=== PATIENT | female | born 1995 | race Caucasian/White ===

== ENCOUNTER 2017-03-20 19:56 | Emergency (ER) | payer OTHER ==
[2017-03-20 20:15] VITALS: TEMP 98.2; O2SAT 95
--- NOTE | 2017-03-20 20:58 | ED.PDOC ---
History of Present Illness - General Chief Complaint: GI Problem Stated Complaint: Abdominal cramping and nausea Time Seen by Provider: 03/20/17 20:05 Source: patient Exam Limitations: no limitations - History of Present Illness Initial Comments: the patient is a 21-year-old female presenting to the emergency room at approximately 10 weeks gestational age presenting withbilateral lower abdomen discomfort and some low back discomfort for the last 24 hours. She does have significant nausea and vomiting of and has had a difficult time keeping hydrated. She has not yet seen an military administrative technician and has not yet received any treatment for it. She is taking vitamins. No vaginal bleeding or significant discharge. No fever. No rebound or peritoneal signs. She has been having something of a difficult time keeping hydrated. Timing/Duration: unsure Severity: moderate Improving Factors: nothing Worsening Factors: nothing Associated Symptoms: malaise, nausea/vomiting Allergies/Adverse Reactions: Allergies NO KNOWN ALLERGY Allergy (Verified 10/01/15 21:37) Home Medications: Ambulatory Orders Doxylamine-Pyridoxine [Diclegis 10-10 mg] 2 tab PO DAILY #30 tab 03/20/17 Famotidine 20 mg PO DAILY #30 tab 03/20/17 Vit W/ Ferrous Fumara [] 1 tab PO DAILY 03/20/17 Promethazine HCl 25 mg PO Q6H PRN #10 tab 03/20/17 Review of Systems - Review of Systems Constitutional: States: malaise EENTM: States: no symptoms reported Respiratory: States: no symptoms reported Cardiology: States: no symptoms reported Gastrointestinal/Abdominal: States: nausea, vomiting Genitourinary: States: no symptoms reported Musculoskeletal: States: back pain Skin: States: no symptoms reported Neurological: States: anxiety Endocrine: States: no symptoms reported All other Systems: No Change from Baseline Past Medical History (General) - Patient Medical History Hx Seizures: No Hx Stroke: No Hx Dementia: No Hx Asthma: No Hx of COPD: No Hx Cardiac Disorders: No Hx Congestive Heart Failure: No Hx Pacemaker: No Hx Hypertension: No Hx Thyroid Disease: No Hx Diabetes: No Hx Gastroesophageal Reflux: No Hx Renal Disease: No Hx Cancer: No Hx of HIV: No Hx Hepatitis C: No Hx MRSA: No Surgical History: tonsillectomy - Vaccination History Hx Tetanus, Diphtheria Vaccination: No Hx Influenza Vaccination: No Hx Pneumococcal Vaccination: No Immunizations Up to Date: Yes - Social History Hx Tobacco Use: Yes Hx Alcohol Use: No Hx Substance Use: No - Female History Hx Last Menstrual Period: 02/08/13 Patient : No Expected Date of Delivery:: 11/15/13 Family Medical History - Family History Mother Family History: Unknown Physical Exam - Physical Exam General Appearance: Alert, Comfortable, No apparent distress Eye Exam: bilateral normal Ears, Nose, Throat: hearing grossly normal, normal ENT inspection, normal pharynx Neck: non-tender, full range of motion, supple Respiratory: chest non-tender, lungs clear, normal breath sounds, no respiratory distress, no accessory muscle use Cardiovascular/Chest: normal peripheral pulses, regular rate, rhythm, no edema Peripheral Pulses: radial,right: 2+, radial,left: 2+, dorsalis pedis,right: 2+, dorsalis pedis,left: 2+ Gastrointestinal/Abdominal: soft, other - no fundal tenderness to palpation. No rebound or peritoneal signs. Mild discomfort to palpation in both the right lower and left lower quadrantsas well as over the round ligaments Rectal Exam: deferred Back Exam: normal inspection, no CVA tenderness, no vertebral tenderness - low back discomfort is primarily L4-L5 extending across the back. Extremity: normal range of motion, non-tender, normal inspection, no pedal edema , normal capillary refill Neurologic: counterintelligence specialist II-XII nml as tested, no motor/sensory deficits, alert, normal mood/affect - she is anxious, oriented x 3 Skin Exam: normal color Comments: Vital Signs - 8 hr 03/20/17 03/20/17 20:09 20:11 Temperature 98.2 F Pulse Rate [ 88 88 Right Radial] Respiratory 18 18 Rate Blood Pressure 110/65 [Left Arm] O2 Sat by Pulse 95 Oximetry Progress - Progress Progress: 03/20/17 21:00 the patient is a 21-year-old female presenting at 10 weeks gestational age secondary to lower abdominal pain. The patient does have significant nausea and vomiting of and is going to be started on doxylamine pyridoxine to help control it. Additionally she'll be placed on 2 weeks of Pepcid. Additionally she'll be written for Phenergan for as needed use to control the vomiting to keep hydrated. No doubt some mild dehydration is contributing to the bodyaches. She does need to follow up with her primary care doctor or military administrative technician next week. ER warnings were given. low resolution Ultrasound here today appears reassuring. - Results/Orders Results/Orders: Laboratory Tests 03/20/17 20:30 Urine Color Yellow Urine Appearance Cloudy Urine pH 7.5 Ur Specific [place] 1.020 Urine Protein Negative Urine Glucose (UA) Negative Urine Ketones Negative Urine Blood Negative Urine Nitrite Negative Urine Bilirubin Negative Urine Urobilinogen 1.0 Ur Leukocyte Esterase Negative Urine RBC 0-1 Urine WBC 1-3 Ur Epithelial Cells 5-10 Amorphous Sediment 3+ Urine Bacteria Rare Urine Mucus Trace ultrasound here shows an intrauterine grossly consistent with a 10 week gestational age. There is movement. There is cardiac motion. There does appear to be adequate fluid. I do not see any placental separation at this point. Departure - Departure Clinical Impression: Dehydration during , Nausea and vomiting during Disposition: Discharge to Home or Self Care Condition: Fair Departure Forms: ED Discharge - Pt. Copy, Patient Portal Self Enrollment Diet: bland diet Activity: increase activity as tolerated Referrals: Ashkan Herrera MD [Primary Care Provider] - 1-5 Days Prescriptions: Doxylamine-Pyridoxine [Diclegis 10-10 mg] 2 tab PO DAILY #30 tab Famotidine 20 mg PO DAILY #30 tab Promethazine HCl 25 mg PO Q6H PRN #10 tab PRN Reason: Vomiting Home Medications: Ambulatory Orders Doxylamine-Pyridoxine [Diclegis 10-10 mg] 2 tab PO DAILY #30 tab 03/20/17 Famotidine 20 mg PO DAILY #30 tab 03/20/17 Vit W/ Ferrous Fumara [] 1 tab PO DAILY 03/20/17 Promethazine HCl 25 mg PO Q6H PRN #10 tab 03/20/17 Additional Instructions: the patient is a 21-year-old female presenting at 10 weeks gestational age secondary to lower abdominal pain. The patient does have significant nausea and vomiting of and is going to be started on doxylamine pyridoxine to help control it. Additionally she'll be placed on 2 weeks of Pepcid. Additionally she'll be written for Phenergan for as needed use to control the vomiting to keep hydrated. No doubt some mild dehydration is contributing to the bodyaches. She does need to follow up with her primary care doctor or military administrative technician next week. ER warnings were given. low resolution Ultrasound here today appears reassuring.
[2017-03-20 21:13] VITALS: BP 109/70
== END 2017-03-20 21:13 | disposition home or self-care (01) ==
LOC: ER 19:56
DX: O21.1 Hyperemesis gravidarum with metabolic disturbance (principal); Z3A.10 10 weeks gestation of pregnancy

== ENCOUNTER 2019-04-02 01:41 | Emergency (ER) | payer OTHER, SELFPAY ==
[2019-04-02] MEDS ORDERED: KETOROLAC TROMETHAMINE INJ 30 MG/ML VIAL IM ONE (01:58)
--- NOTE | 2019-04-02 02:02 | ED.PDOC ---
History of Present Illness - General Chief Complaint: Upper Extremity Injury Stated Complaint: left wrist pain Time Seen by Provider: 04/02/19 01:57 Source: patient Exam Limitations: no limitations - History of Present Illness Initial Comments: Patient presents complaining of left wrist pain after FOSH. She was stepping off her porch when she fell. Pain is lateral with radiation to the volar surface of the distal third of the left forearm. Throbbing and constant. Worse with movement, better with rest. No previous injuries to the area. No other symptoms nor injuries. Timing/Duration: 1/2 hour Severity: moderate Improving Factors: rest Worsening Factors: movement Associated Symptoms: denies symptoms Allergies/Adverse Reactions: Allergies NO KNOWN ALLERGY Allergy (Verified 10/01/15 21:37) Home Medications: Ambulatory Orders Doxylamine-Pyridoxine [Diclegis 10-10 mg] 2 tab PO DAILY #30 tab 03/20/17 Famotidine 20 mg PO DAILY #30 tab 03/20/17 Vit W/ Ferrous Fumara [] 1 tab PO DAILY 03/20/17 Promethazine HCl 25 mg PO Q6H PRN #10 tab 03/20/17 Acetaminophen W/ Codeine [Tylenol W/ CODEINE #3] 1 ea PO Q6HRS PRN #20 04/02/19 Review of Systems - Review of Systems Constitutional: States: no symptoms reported EENTM: States: no symptoms reported Respiratory: States: no symptoms reported Cardiology: States: no symptoms reported Gastrointestinal/Abdominal: States: no symptoms reported Genitourinary: States: no symptoms reported Musculoskeletal: States: see HPI Skin: States: no symptoms reported Neurological: States: no symptoms reported Endocrine: States: no symptoms reported Hematologic/Lymphatic: States: no symptoms reported Past Medical History (General) - Patient Medical History Hx Seizures: No Hx Stroke: No Hx Dementia: No Hx Asthma: No Hx of COPD: No Hx Cardiac Disorders: No Hx Congestive Heart Failure: No Hx Pacemaker: No Hx Hypertension: No Hx Thyroid Disease: No Hx Diabetes: No Hx Gastroesophageal Reflux: No Hx Renal Disease: No Hx Cancer: No Hx of HIV: No Hx Hepatitis C: No Hx MRSA: No - Vaccination History Hx Tetanus, Diphtheria Vaccination: No Hx Influenza Vaccination: No Hx Pneumococcal Vaccination: No - Social History Hx Tobacco Use: Yes Hx Alcohol Use: No Hx Substance Use: No - Female History Hx Last Menstrual Period: 02/08/13 Patient : No Expected Date of Delivery:: 11/15/13 Family Medical History - Family History Mother Family History: Unknown Physical Exam - Physical Exam General Appearance: Alert Respiratory: lungs clear, normal breath sounds Cardiovascular/Chest: normal peripheral pulses, regular rate, rhythm Gastrointestinal/Abdominal: normal bowel sounds, non tender, soft Extremity: normal capillary refill, other - TTP over lateral left wrist. Mild edema. Patient does not want to try to move the wrist due to pain. 5/5 AROM of the left fingers. supination and pronation examination deferred until radiographs obtained. Neurologic: no motor/sensory deficits, alert, normal mood/affect Skin Exam: normal color Lymphatic: no adenopathy Progress - Progress Progress: 04/02/19 03:03 Radiographs showed non-displaced fracture of the left ulnar styloid process. There was an mildly displaced posteriorly angulated fracture of the distal left radius. The fracture site was injected with 8 cc of lidocaine without epinphephrine and longitudinal traction used to partially reduce the fracture. 90 degree long arm gutter splint applied. Patient had full sensation in her left hand and fingers as well as 5/5 AROM of the left fingers. Capillary refill less than 2 seconds in the left fingernail beds. Care instructions given. E.R. warnings given. Questions were elicited and answered. Patient voiced understanding and agreement with the plan. Departure - Departure Clinical Impression: Wrist fracture, left Disposition: Discharge to Home or Self Care Condition: Good Departure Forms: ED Discharge - Pt. Copy, Patient Portal Self Enrollment Instructions: Wrist Fracture (DC) Diet: other - No lifting with the left arm. Referrals: Ashkan Herrera MD [Primary Care Provider] - 1-2 Weeks Prescriptions: Acetaminophen W/ Codeine [Tylenol W/ CODEINE #3] 1 ea PO Q6HRS PRN #20 PRN Reason: Pain Home Medications: Ambulatory Orders Doxylamine-Pyridoxine [Diclegis 10-10 mg] 2 tab PO DAILY #30 tab 03/20/17 Famotidine 20 mg PO DAILY #30 tab 03/20/17 Vit W/ Ferrous Fumara [] 1 tab PO DAILY 03/20/17 Promethazine HCl 25 mg PO Q6H PRN #10 tab 03/20/17 Acetaminophen W/ Codeine [Tylenol W/ CODEINE #3] 1 ea PO Q6HRS PRN #20 04/02/19 Additional Instructions: Take pain medication as prescribed if needed. Do not drive within 8 hours after taking the pain medications. Do not drink alcohol or operate heavy machinery after taking the pain medication. You can use ibuprofen as a safe substitute for Tylenol #3. Use the arm sling except when bathing. Cover the splint with a plastic bag when bathing. See Dr. Groves in 3-4 days for casting. Return to the E.R. immediately for loss of sensation in the left hand, pale left hand, or hardening texture of the skin of the left hand. Return for increasing pain in the left hand.
[2019-04-02] MEDS ORDERED: LIDOCAINE 1% 10 ML VIAL INJ ONE (02:32)
--- NOTE | 2019-04-02 02:53 | RAD ---
EXAM DESCRIPTION: Forearm,Left CLINICAL HISTORY: fell down step, landed on left arm COMPARISON: None. FINDINGS/IMPRESSION: 2 views of the left forearm. Acute mildly displaced fracture of the distal left radial metaphysis with approximately 30 degrees dorsal angulation of the distal radial articular surface. Mildly displaced ulnar styloid fracture. Normal osseous mineralization. Electronically signed by: Harmeet Allred 04/02/2019 2:51 AM CDT
--- NOTE | 2019-04-02 02:53 | RAD ---
EXAM DESCRIPTION: Elbow,Left 3 Views CLINICAL HISTORY: fell down step, landed on left arm COMPARISON: None. FINDINGS: 3 views of the left elbow. No acute fracture or dislocation. Normal osseous mineralization. No joint effusion. IMPRESSION: 1. No acute fracture or dislocation. Electronically signed by: Harmeet Allred 04/02/2019 2:52 AM CDT
--- NOTE | 2019-04-02 02:55 | RAD ---
EXAM DESCRIPTION: Hand,Left 3 Views CLINICAL HISTORY: fell down step, landed on left arm COMPARISON: None. FINDINGS/IMPRESSION: 3 views of the left hand. Acute mildly displaced fracture of the distal left radial metaphysis with approximately 30 degrees dorsal angulation the distal radial articular surface. Minimally displaced ulnar styloid fracture. No fractures involving the carpals, metacarpals, or phalanges. Normal osseous mineralization. Electronically signed by: Harmeet Allred 04/02/2019 2:53 AM CDT
--- NOTE | 2019-04-02 02:56 | RAD ---
EXAM DESCRIPTION: Wrist,Left 3 Views CLINICAL HISTORY: fell down step, landed on left arm COMPARISON: None. FINDINGS/IMPRESSION: 3 views of the left wrist. Acute mildly displaced fracture of the distal left radial metaphysis with approximately 30 degrees dorsal angulation of the distal radial articular surface. Minimally displaced ulnar styloid fracture. Normal osseous mineralization. Electronically signed by: Harmeet Allred 04/02/2019 2:54 AM CDT
[2019-04-02] MEDS ORDERED: ACETAMINOPHEN W/COD #3 TAB (ER Disp) PO ONE (03:08)
[2019-04-02 03:22] VITALS: BP 120/71; TEMP 99; O2SAT 97
== END 2019-04-02 03:21 | disposition home or self-care (01) ==
LOC: ER 01:41
DX: S52.615A Nondisplaced fracture of left ulna styloid process, initial encounter for closed fracture (principal); S52.502A Unspecified fracture of the lower end of left radius, initial encounter for closed fracture; Z87.891 Personal history of nicotine dependence; W18.30XA Fall on same level, unspecified, initial encounter; Y92.009 Unspecified place in unspecified non-institutional (private) residence as the place of occurrence of the external cause
CPT/HCPCS: 73080; 73090; 73110; 73130; 81025; J1885

== ENCOUNTER 2019-04-04 05:25 | Day surgery (SDC) | payer SELFPAY ==
[2019-04-04] MEDS ORDERED: SODIUM CHL 0.9% 100ML MINI-BAG 100 ML IVPB ONE (08:35)
[2019-04-04] MEDS: LACTATED RINGERS 1,000 ML ONE (09:05)
[2019-04-04] MEDS ORDERED: DEXAMETHASONE INJ 10 MG/ML VIAL IV ONE (10:00)
[2019-04-04] MEDS ORDERED: raNITIdine HCL INJ 25 MG/ML VIAL IV ONE (10:00)
[2019-04-04] MEDS ORDERED: PROPOFOL 200 MG/20 ML VIAL IV ONE (10:00)
[2019-04-04] MEDS ORDERED: LIDOCAINE 1% 10 ML VIAL INJ ONE (10:00)
[2019-04-04] MEDS ORDERED: KETOROLAC TROMETHAMINE INJ 30 MG/ML VIAL IV ONE (10:00)
[2019-04-04] MEDS ORDERED: fentaNYL CITRATE INJ 50 MCG/ML AMP ONE (10:10)
[2019-04-04] MEDS ORDERED: KETAMINE HCL 50 MG/ML SYG IV ONE (10:10)
[2019-04-04] MEDS ORDERED: MIDAZOLAM INJ 2 MG/2 ML VIAL ONE (10:10)
[2019-04-04] MEDS: ceFAZolin SODIUM 1 GM VIAL ONE ×2 (10:21→11:00)
[2019-04-04] MEDS: VANCOMYCIN HCL INJ 1,000 MG VIAL IVPB ONE (11:00)
[2019-04-04] MEDS: BUPIVACAINE 0.5% 30 ML VIAL INJ ONE (11:12)
[2019-04-04] MEDS: BUPIVACAINE LIPOSOME 13.3 MG/ML VIAL INJ ONE (11:12)
[2019-04-04] MEDS: MEPERIDINE HCL 50 MG/ML VIAL ONE (11:40)
[2019-04-04] MEDS: ONDANSETRON INJ 4 MG/2 ML VIAL ONE (11:40)
[2019-04-04] MEDS: HYDROmorphone HCL INJ 2 MG/ML VIAL ONE (11:51)
[2019-04-04] MEDS: HYDROcodone 5MG/APAP 325MG 1 EA TAB ONE (12:31)
--- NOTE | 2019-04-04 12:39 | RAD ---
2 radiographs left wrist Indication: post op perc pinning Comparison: April 02, 2019 Impression: Placement of 2 surgical wires across the distal radial fracture noted with improved fracture alignment. Ulnar styloid fracture noted as well. No new fractures identified. Electronically signed by: Rayray Dale MD 04/04/2019 12:37 PM CDT
[2019-04-04 13:09] VITALS: BP 127/87; TEMP 97.3; O2SAT 97
--- NOTE | 2019-04-04 13:50 | RAD ---
EXAM DESCRIPTION: Fluoroscopy Up to 1Hr CLINICAL HISTORY: 23 years Female, PERC-PINNING COMPARISON: Left Wrist radiographs same day FINDINGS/IMPRESSION: Frontal and lateral intraoperative fluoroscopic views were obtained demonstrating interval percutaneous pinning of the left distal radius fracture. Redemonstration of ulnar styloid base fracture. Fluoroscopy less than one hour. Electronically signed by: Rosendo Covington DO 04/04/2019 1:48 PM CDT
--- NOTE | 2019-04-05 10:00 | OP ---
DATE OF PROCEDURE: 04/04/19 PREOPERATIVE DIAGNOSIS: 1. Left distal radius fracture. POSTOPERATIVE DIAGNOSIS: 1. Left distal radius fracture. PROCEDURE: 1. Closed reduction and percutaneous pinning. SURGEON: True Groves MD. HEALTH AND WELLNESS COORDINATOR: Clifford Coffey CST, SA-C. ANESTHESIA: General anesthesia. COMPLICATIONS: None. FINDINGS: Displaced distal radius fracture. INDICATION FOR PROCEDURE: Ms. Rodriguez has a history of a fall that occurred one day prior to presentation. She was placed in a splint and following placement in the splint, I saw her in the clinic. I discussed with her options and given the displacement of the fracture, I felt at minimum a reduction was needed. After discussing the risks, benefits and alternatives to operative therapy, she gave informed consent for closed reduction and percutaneous pinning. PROCEDURE: The patient was brought to the Operating Room and placed in supine position. General anesthesia was induced and the patient's arm was sterilely prepped and draped. Under fluoroscopic imaging, a reduction of the fracture was achieved. A very small stab incision was made along the radial styloid. Blunt dissection was carried down to the radial styloid and a 1.6 mm K-wire was placed across the fracture site obliquely. A second wire was placed as well. Following placement of the wires, the wrist was taken through a range of motion in both the AP and lateral planes and there did not appear to be any motion at the fracture site. The pins were trimmed. The wound was then very thoroughly irrigated and properly dressed. She was splinted. She was awoken from anesthesia and taken to Recovery. POSTOPERATIVE INSTRUCTIONS: She will followup with us in two days. #[id number] [facility]
== END 2019-04-04 13:05 | disposition home or self-care (01) ==
LOC: AMB 05:25
PROVIDERS: ATTEND Orthopaedic Surgery
DX: S52.502A Unspecified fracture of the lower end of left radius, initial encounter for closed fracture (principal); W19.XXXA Unspecified fall, initial encounter; Z91.040 Latex allergy status
CPT/HCPCS: 01820; 25606; 73100; 76000; 80307; 87070; J0690; J1100; J1170; J1885; J2175; J2250; J2405; J2780; J3010; J3370; J3490; J7050; J7120

== ENCOUNTER → 2019-04-17 | Outpatient (CLI) | payer SELFPAY ==
--- NOTE | 2019-04-17 09:42 | RAD ---
EXAM DESCRIPTION: Wrist,Left 3 Views CLINICAL HISTORY: 23 years, Female, FX COMPARISON: 04/04/2019. Technique: Frontal lateral and oblique views of the left wrist was obtained. FINDINGS/IMPRESSION: Images of the left wrist demonstrate overlying fiberglass material which obscures fine bony detail. Percutaneous K wire fixation of the left distal radius fracture is redemonstrated in stable alignment without hardware fracture or complication. Interval progressive healing and callus formation across the distal radius fracture with stable osseous alignment. Mild fracture lucency persists. The minimally displaced healing ulnar styloid base fracture is unchanged. Mild persistent soft tissue swelling. Electronically signed by: Rosendo Covington DO 04/17/2019 9:40 AM CDT
== END ==
LOC: RAD 08:42
PROVIDERS: ATTEND Orthopaedic Surgery
DX: S52.512D Displaced fracture of left radial styloid process, subsequent encounter for closed fracture with routine healing (principal); S52.612D Displaced fracture of left ulna styloid process, subsequent encounter for closed fracture with routine healing; M79.9 Soft tissue disorder, unspecified; Z98.890 Other specified postprocedural states